=== PATIENT | female | born 1995 | race Caucasian/White ===

== ENCOUNTER 2017-02-04 14:49 | Emergency (ER) | payer SELFPAY ==
[~2017-02-04 14:49] MED LIST: NAPR250UDC
[2017-02-04 14:53] VITALS: BP 120/74; PULSE 89; RESP 12; TEMP 98.5; O2SAT 99
== END 2017-02-04 21:26 | disposition left against medical advice (07) ==
LOC: NED 14:49
DX: Z00.8 Encounter for other general examination (principal); Z53.21 Procedure and treatment not carried out due to patient leaving prior to being seen by health care provider
CPT/HCPCS: 99281